=== PATIENT | female | born 1940 | race Caucasian/White ===

== ENCOUNTER 2021-01-28 15:30 | Inpatient (IN) | payer MEDICARE, MEDICAID ==
[~2021-01-28] VITALS: Ht 170.2 cm; Wt 58.5 kg
[2021-01-28] MEDS: CARVEDILOL 6.25 MG TABLET PO SCH ×2 (11:00→21:00)
[~2021-01-28 15:30] MED LIST: LISINOPRIL PO; MELOXICAM PO; METFORMIN PO; TRAMADOL PO
[2021-01-28 17:01] LABS: BASOPHILS % 0.7 % (0.0-2.0); EOSINOPHILS % 1.3 % (0.0-5.0); HEMATOCRIT. 33.5 % (36.0-48.0); HEMOGLOBIN. 11.1 g/dL (12.0-16.0); LYMPHOCYTES % 24.3 % (20.0-50.0); MEAN CORPUSCULAR HEMOGLOBIN 29.3 pg (28.0-32.0); MEAN CORPUSCULAR VOLUME 88.6 fL (81.0-99.0); MEAN PLATELET VOLUME 7.8 fl (7.4-10.4); MONOCYTES % 7.2 % (2.0-8.0); NEUTROPHILS % 66.5 % (40.0-76.0); PLATELET 158 x1000/uL (130-400); RED BLOOD CELL COUNT 3.78 mill/uL (4.2-5.4); RED CELL DISTRIBUTION WIDTH 14.2 % (11.6-14.6)
[2021-01-28 17:05] LABS: CHLORIDE 105 mEq/L (98-107)
[2021-01-28] MEDS ORDERED: FUROSEMIDE 40MG/4ML VIAL IVP NR (18:30)
[2021-01-28] MEDS ORDERED: NITROGLYCERIN OINT 1GM/INCH UDPKT TD NR (18:30)
[2021-01-28] MEDS ORDERED: HYDRALAZINE HCL 50MG TABLET PO SCH (23:00)
[2021-01-28] MEDS ORDERED: HYDRALAZINE 20MG/ML VIAL IV PRN (23:15)
[2021-01-29] MEDS ORDERED: CLONIDINE 0.2MG TABLET PO SCH (01:45)
[2021-01-29] MEDS ORDERED: NITROGLYCERIN 50MG PREMIX 250 ML IV PRN (04:30)
[2021-01-29] MEDS ORDERED: ONDANSETRON HCL 4MG/2ML INJ IV PRN (08:30)
[2021-01-29] MEDS ORDERED: ACETAMINOPHEN 325MG TABLET PO PRN (08:30)
[2021-01-29] MEDS: LISINOPRIL 40MG TABLET PO SCH (09:44)
[2021-01-29] MEDS: CARVEDILOL 6.25 MG TABLET PO SCH ×2 (14:05→21:39)
[2021-01-29] MEDS: HYDRALAZINE HCL 100MG TABLET PO SCH ×2 (14:11→21:40)
[2021-01-29] MEDS: CLONIDINE 0.1MG TABLET PO PRN (20:05)
[2021-01-29 20:50] VITALS: BP 175/53
[2021-01-29 21:30] VITALS: BP_SYST 140; BP_SYST 175; BP_DIAS 53; BP_DIAS 58
[2021-01-29] MEDS ORDERED: DONE10TA43 MT (22:38)
[2021-01-29] MEDS ORDERED: LOSA50TA41 PO (22:38)
[2021-01-29] MEDS ORDERED: ASPI-1406 PO (22:38)
[2021-01-29] MEDS ORDERED: ATOR10TA69 PO (22:38)
[2021-01-29] MEDS ORDERED: CLON0.2T PO (22:38)
[2021-01-29] MEDS ORDERED: FERR325T6 PO (22:38)
[2021-01-29] MEDS ORDERED: ESCI5TAB16 PO (22:38)
[2021-01-29] MEDS ORDERED: METF-414 PO (22:38)
[2021-01-29] MEDS ORDERED: CARV12.545 PO (22:39)
[2021-01-29] MEDS ORDERED: DEXTROSE 50% WATER 50ML SYRINGE IV PRN (23:15)
[2021-01-29] MEDS ORDERED: *PATIENT'S OWN MEDICATION STORAGE XX SCH (23:45)
[2021-01-30] VITALS (7 sets, daily range): BP systolic 101–190; BP diastolic 32–51
[2021-01-30] MEDS: HYDRALAZINE HCL 100MG TABLET PO SCH (05:43)
[2021-01-30] MEDS: BLOOD SUGAR DIAGNOSTIC STRIP TEST SCH ×4 (06:33→21:00)
[2021-01-30] MEDS: INSULIN LISPRO 100 UNITS/ML SUBCUT SCH ×4 (06:33→21:17)
[2021-01-30 06:43] LABS: BASOPHILS % 0.3 % (0.0-2.0); EOSINOPHILS % 0.3 % (0.0-5.0); HEMATOCRIT. 35.9 % (36.0-48.0); HEMOGLOBIN. 11.6 g/dL (12.0-16.0); LYMPHOCYTES % 20.9 % (20.0-50.0); MEAN CORPUSCULAR HEMOGLOBIN 28.9 pg (28.0-32.0); MEAN CORPUSCULAR VOLUME 89.3 fL (81.0-99.0); MEAN PLATELET VOLUME 7.3 fl (7.4-10.4); MONOCYTES % 7.3 % (2.0-8.0); NEUTROPHILS % 71.2 % (40.0-76.0); PLATELET 170 x1000/uL (130-400); RED BLOOD CELL COUNT 4.02 mill/uL (4.2-5.4); RED CELL DISTRIBUTION WIDTH 14.4 % (11.6-14.6)
[2021-01-30] MEDS: FLUOXETINE HCL 10 MG CAPSULE PO SCH (08:32)
[2021-01-30] MEDS: LISINOPRIL 40MG TABLET PO SCH (08:33)
[2021-01-30] MEDS: CARVEDILOL 6.25 MG TABLET PO SCH ×2 (08:33→21:16)
[2021-01-30] MEDS ORDERED: SERT-422 PO (11:21)
[2021-01-30] MEDS ORDERED: ASPI-1406 PO (11:21)
[2021-01-30] MEDS ORDERED: NICO-645 TP (11:21)
[2021-01-30] MEDS ORDERED: PROM6.254 PO (11:21)
[2021-01-30] MEDS ORDERED: NITR0.4T49 SL (11:21)
[2021-01-30] MEDS ORDERED: LOSA50TA41 PO (11:21)
[2021-01-30] MEDS ORDERED: IPRA3AMP31 IH (11:21)
[2021-01-30] MEDS ORDERED: QUET400T PO (11:21)
[2021-01-30] MEDS ORDERED: CARV3.1242 PO (11:21)
[2021-01-30] MEDS ORDERED: QUET400T53 MT (11:21)
[2021-01-30] MEDS ORDERED: METH2.5T MT (11:21)
[2021-01-30] MEDS ORDERED: FURO40TA5 PO (11:21)
[2021-01-30] MEDS ORDERED: CHLO1LIQ2 MC (11:21)
[2021-01-30] MEDS ORDERED: IBUP25PO MC (11:21)
[2021-01-30] MEDS ORDERED: ALBU6.7H15 INH (11:21)
[2021-01-30] MEDS: SODIUM CHLORIDE 0.9% 1,000 ML IV SCH (14:05)
[2021-01-30] MEDS: CLONIDINE 0.1MG TABLET PO PRN (16:41)
[2021-01-30] MEDS: DONEPEZIL HCL 5MG TABLET PO SCH (18:39)
[2021-01-31] VITALS: BP 159/43
[2021-01-31] MEDS: SODIUM CHLORIDE 0.9% 1,000 ML IV SCH (03:55)
[2021-01-31 04:00] VITALS: BP 198/62
[2021-01-31] MEDS: CLONIDINE 0.1MG TABLET PO PRN (05:44)
[2021-01-31] MEDS: INSULIN LISPRO 100 UNITS/ML SUBCUT SCH ×2 (06:55→13:10)
[2021-01-31] MEDS: BLOOD SUGAR DIAGNOSTIC STRIP TEST SCH (06:55)
[2021-01-31 07:31] LABS: BASOPHILS % 0.3 % (0.0-2.0); EOSINOPHILS % 1.5 % (0.0-5.0); HEMATOCRIT. 33.8 % (36.0-48.0); LYMPHOCYTES % 18.9 % (20.0-50.0); MEAN CORPUSCULAR HEMOGLOBIN 28.8 pg (28.0-32.0); MEAN CORPUSCULAR VOLUME 88.5 fL (81.0-99.0); MEAN PLATELET VOLUME 7.6 fl (7.4-10.4); MONOCYTES % 8.2 % (2.0-8.0); NEUTROPHILS % 71.1 % (40.0-76.0); PLATELET 141 x1000/uL (130-400); RED BLOOD CELL COUNT 3.82 mill/uL (4.2-5.4); RED CELL DISTRIBUTION WIDTH 13.9 % (11.6-14.6)
[2021-01-31 08:00] VITALS: BP 140/52
[2021-01-31] MEDS ORDERED: LOSARTAN POTASSIUM 25 MG TABLET PO SCH ×2 (09:00→09:15)
[2021-01-31] MEDS ORDERED: LOSARTAN POTASSIUM 50 MG TABLET PO SCH (09:15)
[2021-01-31] MEDS: CARVEDILOL 6.25 MG TABLET PO SCH (09:35)
[2021-01-31] MEDS: DONEPEZIL HCL 5MG TABLET PO SCH (09:35)
[2021-01-31] MEDS: FLUOXETINE HCL 10 MG CAPSULE PO SCH (09:36)
[2021-01-31] MEDS ORDERED: DOCUSATE SODIUM 250MG CAPSULE PO SCH (10:00)
[2021-01-31 12:00] VITALS: BP 144/48
[2021-01-31 13:50] VITALS: BP 144/98
== END 2021-01-31 16:10 | disposition home or self-care (01) | DRG 73 ==
LOC: ER 15:30 → MICUSO 19:37 → EDBEDREQ 19:39 → EDBEDREQTM 19:39 → 8WST 23:14 → MICUSO 01-29 04:08 → 8WST 01-29 18:58
PROVIDERS: ADMIT Internal Medicine; ATTEND Internal Medicine
DX: G90.8 Other disorders of autonomic nervous system (principal); G93.41 Metabolic encephalopathy; N17.0 Acute kidney failure with tubular necrosis; I50.32 Chronic diastolic (congestive) heart failure; D64.9 Anemia, unspecified; E11.9 Type 2 diabetes mellitus without complications; E78.5 Hyperlipidemia, unspecified; F03.90 Unspecified dementia, unspecified severity, without behavioral disturbance, psychotic disturbance, mood disturbance, and anxiety; I11.0 Hypertensive heart disease with heart failure; I16.0 Hypertensive urgency; F32.9 Major depressive disorder, single episode, unspecified; Z20.822 Contact with and (suspected) exposure to COVID-19; M75.01 Adhesive capsulitis of right shoulder; I95.9 Hypotension, unspecified; R26.9 Unspecified abnormalities of gait and mobility; R53.81 Other malaise; Z79.84 Long term (current) use of oral hypoglycemic drugs; Z86.79 Personal history of other diseases of the circulatory system; Z79.899 Other long term (current) drug therapy; Z86.61 Personal history of infections of the central nervous system
CPT/HCPCS: 36415; 71045; 80048; 80053; 80061; 82962; 83036; 83735; 83880; 84443; 84484; 85025; 86850; 86900; 87426; 92610; 93005; 93306; 93880; 97161; 99291; J0360; J1815; J1940; J7030